=== PATIENT | female | born 1995 | race African-American/Black ===

== ENCOUNTER 2019-03-30 14:46 | Emergency (ER) | payer OTHER, SELFPAY ==
[~2019-03-30] VITALS: Ht 170.2 cm; Wt 57.1 kg
[2019-03-30 14:47] VITALS: BP 123/72
[2019-03-30] MEDS ORDERED: GI COCKTAIL 50ML BTL(HYOSCYAMINE/MAALOX/LIDOCAINE VISCOUS)(1:3:1) PO ONE (16:15)
--- NOTE | 2019-03-31 07:49 | ECGEPIP ---
[facility] - ED Test Date: 2019-03-30 Pat Name: CATINA GORMAN Department: Room: - Gender: Female Implementation Lead: sanam : 1995 Requested By: Yolanda Pérez Order Number: [id number] Reading MD: Yolanda Pérez Measurements Intervals [place] Rate: 75 P: 31 MS: 151 QRS: 21 QRSD: 84 T: 9 QT: 393 QTc: 440 Interpretive Statements SINUS RHYTHM SEPTAL MYOCARDIAL INFARCTION, OF INDETERMINATE AGE NO PRIOR FOR COMPARISON Electronically Signed on 03-31-2019 7:49:26 EDT by Yolanda Pérez
== END 2019-03-30 16:23 | disposition left against medical advice (07) ==
LOC: M ED 14:46
DX: K21.9 Gastro-esophageal reflux disease without esophagitis (principal); M25.511 Pain in right shoulder